=== PATIENT | male | born 1980 | race African-American/Black ===

== ENCOUNTER 2016-08-06 16:26 | Emergency (ER) | payer SELFPAY ==
[~2016-08-06] VITALS: Ht 182.9 cm; Wt 68.0 kg
--- NOTE | 2016-08-06 16:44 | NUR ---
BIB [facility]. PT IS IRRITABLE, GUARDED, HIGHLY FOCUSED ON LEAVING. C/O HYPOGLYCEMIA. ENROUTE PT WAS GIVEN D50. PT VERBALIZED, "I FEEL GOOD. I JUST WANT TO LEAVE ALREADY MAN!". EXPLAINED IMPORTANCE OF STAYING. MD STYLES MADE AWARE. BS CHECKED BY TRIAGE NURSE AND WAS 107MG/DL. PT IS ALERT AND ORIENTED X4. AMBULATORY WITH STEADY GAIT. SPEAKING IN FULL SENTENCES. NAD NOTED. VSS. PT ALSO DENIES SI/HI/AVH AT THIS TIME. WCTM PT
[2016-08-06] MEDS ORDERED: insulin (16:46)
--- NOTE | 2016-08-06 16:51 | NUR ---
PT LEFT PRIOR TO BEING EVALUATED BY MD. PT IS AMBULATORY WITH STEADY GAIT. SPEAKING IN FULL SENTENCES NAD. VSS. EXPLAINED RISKS AND BENEFITS OF LEAVING INCLUDING . PT VERBALIZED UNDERSTANDING OF INSTRUCTIONS. PT VERBALIZED, "I JUST WANT TO LEAVE MAN AND GO HOME! CAN YOU JUST REMOVE THIS IV FROM ME SO I CAN GO!"
== END 2016-08-06 17:20 | disposition left against medical advice (07) ==
LOC: ER 16:33
DX: Z53.21 Procedure and treatment not carried out due to patient leaving prior to being seen by health care provider (principal)
CPT/HCPCS: A4663